=== PATIENT | male | born 1990 | race Caucasian/White ===

== ENCOUNTER 2017-02-21 20:14 | Emergency (ER) | payer BC ==
[2017-02-21 20:41] VITALS: BP 136/91
[2017-02-21] MEDS ORDERED: Alum Hydrox/Mag Hydrox/Simeth 30 ML, Lidocaine 2% 15 ML PO ONE ×2 (21:32)
[2017-02-21] MEDS ORDERED: Ondansetron 4 MG Tab.DIS PO ONE (21:32)
--- NOTE | 2017-02-21 21:43 | EDM.PDOC ---
ED HPI GENERAL MEDICAL PROBLEM - General Chief Complaint: General Stated Complaint: GENERAL PAIN IN BODY Time Seen by Provider: 02/21/17 21:24 Source of Information: Reports: Patient History Limitations: Reports: No Limitations - History of Present Illness INITIAL COMMENTS - FREE TEXT/NARRATIVE: Patient is a 26-year-old male who presents to the ED complaining of generalized body aches, nausea/vomiting, and diarrhea for the past 2-3 days. In addition he' s also had cold-like symptoms with nonproductive cough and headache. He's had no documented fever. He's taken some ibuprofen with no improvement of his current symptoms. Did vomit x1 this morning with no blood present with no blood with this as well. He is mildly nauseated with admission to the ED. Epigastric discomfort is described as a throbbing sensation. He has no history of acid reflux. Denies any aggravation with drinking or eating. Patient has no pertinent past medical history. Generalized Pain Score (Numeric/FACES): 4 - Related Data Allergies Allergy/AdvReac Type Severity Reaction Status Date / Time No Known Allergies Allergy Verified 02/21/17 20:34 Home Meds: Home Meds FLUoxetine [PROzac] 40 mg PO DAILY 02/21/17 [History] Ondansetron [Zofran ODT] 4 mg PO Q6H PRN #10 tab.dis 02/21/17 [Rx] busPIRone [Buspar] 10 mg PO TID 02/21/17 [History] Past Medical History Psychiatric History: Reports: Anxiety - Past Surgical History GI Surgical History: Reports: Appendectomy Social & Family History - Tobacco Use Smoking Status *Q: Never Smoker - Caffeine Use Caffeine Use: Reports: Energy Drinks - Recreational Drug Use Recreational Drug Use: No ED ROS GENERAL - Review of Systems Review Of Systems: See Below Constitutional: Reports: Malaise, Decreased Appetite. Denies: Fever, Chills HEENT: Reports: Rhinitis, Sinus Problem. Denies: Throat Pain, Throat Swelling Respiratory: Reports: Cough. Denies: Shortness of Breath, Sputum Cardiovascular: Denies: Chest Pain, Dyspnea on Exertion, Palpitations GI/Abdominal: Reports: Abdominal Pain, Decreased Appetite, Nausea, Vomiting (x1) . Denies: Bloody Stool, Constipation, Diarrhea, Hematemesis Musculoskeletal: Reports: Muscle Pain (generalized) ED EXAM, GENERAL - Physical Exam Exam: See Below Exam Limited By: No Limitations General Appearance: Alert, WD/WN, No Apparent Distress Ears: Normal External Exam, Normal Canal, Hearing Grossly Normal, Normal TMs Nose: Normal Inspection Throat/Mouth: Normal Inspection, Normal Oropharynx, Normal Voice, No Airway Compromise Head: Atraumatic, Normocephalic, Sinus Tenderness Neck: Normal Inspection, Supple, Non-Tender, Full Range of Motion. No: Lymphadenopathy (L), Lymphadenopathy (R) Respiratory/Chest: No Respiratory Distress, Lungs Clear, Normal Breath Sounds, No Accessory Muscle Use, Chest Non-Tender Cardiovascular: Normal Peripheral Pulses, Regular Rate, Rhythm GI/Abdominal: Normal Bowel Sounds, Soft, No Organomegaly, No Distention, No Abnormal Bruit, No Mass, Tender (mild tenderness to the epigastric region). No : Distended, Guarding, Rigid, Rebound, Hepatomegaly, Splenomegaly Extremities: Normal Inspection Neurological: Alert, Oriented, CN II-XII Intact, Normal Cognition, No Motor/ Sensory Deficits Psychiatric: Normal Affect, Normal Mood Skin Exam: Warm, Dry, Intact, Normal Color Course - Vital Signs Last Recorded V/S: Last Vital Signs Temp 98.5 F 02/21/17 20:39 Pulse 80 02/21/17 20:39 Resp 20 02/21/17 20:39 BP 136/91 H 02/21/17 20:47 Pulse Ox 99 02/21/17 20:39 - Orders/Labs/Meds Meds: Medications Discontinued Medications Generic Name Dose Route Start Last Admin Trade Name Freq PRN Reason Stop Dose Admin Al Hydroxide/Mg Hydroxide 30 0 ml 02/21/17 21:32 02/21/17 21:42 ml/ Lidocaine HCl 15 ml PO 02/21/17 21:33 45 ml ONETIME ONE Administration Ondansetron HCl 4 mg 02/21/17 21:32 02/21/17 21:42 Zofran Odt PO 02/21/17 21:33 4 mg ONETIME ONE Administration - Re-Assessments/Exams Free Text/Narrative Re-Assessment/Exam: Patient has opted to take zofran and GI cocktail to see if this relieves symptoms prior to obtaining blood work and/or imaging. 2227 Reassessment, symptoms have drastically improved with the above therapies. Will discharge patient home with instructions as documented. Departure - Departure Time of Disposition: 22:38 Disposition: Home, Self-Care 01 Condition: good Clinical Impression: Gastroenteritis, Abdominal pain in male - Discharge Information Prescriptions: Ondansetron [Zofran ODT] 4 mg PO Q6H PRN #10 tab.dis PRN Reason: Nausea/Vomiting Referrals: Xuan Cortez, ORAL THERAPIST [Primary Care Provider] - Forms: ED Department Discharge, Return to Work/School Form Additional Instructions: Take the zofran as prescribed for nausea/vomiting. Push the fluids advancing to bland diet in the next 24 hrs as tolerated. Refrain from fruit juices, milk, raw fruits/vegetables, and or any other foods that cause worsening symptoms. Followup with PCP this coming week if symptoms persist. Return to the E.D. if you develop any new or worsening symptoms. May take prilosec 20mg 1/2 hr to breakfast everyday for the next 2 wks for stomach irritation.
== END 2017-02-21 22:50 | disposition home or self-care (01) ==
LOC: JD.ED 20:14 → SUPCPDRO 20:14 → JD.ED 22:50
DX: K52.9 Noninfective gastroenteritis and colitis, unspecified (principal); F41.9 Anxiety disorder, unspecified; Z90.49 Acquired absence of other specified parts of digestive tract; Z79.899 Other long term (current) drug therapy
CPT/HCPCS: 99283; A9270

== ENCOUNTER 2017-04-20 20:48 | Emergency (ER) | payer BC ==
[2017-04-20 21:11] VITALS: BP 138/80
[2017-04-20] MEDS ORDERED: Acetaminophen 325 MG Tab PO ONE (21:43)
[2017-04-20] MEDS ORDERED: Cyclobenzaprine 10 MG Tab PO ONE (21:43)
[2017-04-20] MEDS ORDERED: Ibuprofen 800 MG Tab PO ONE (21:43)
--- NOTE | 2017-04-20 21:47 | EDM.PDOC ---
[id number]: [facility] PAIN GOING TO LEGS/DIZZY Time Seen by Provider: 04/20/17 21:01 Source of Information: Reports: Patient History Limitations: Reports: No Limitations - History of Present Illness INITIAL COMMENTS - FREE TEXT/NARRATIVE: 26 y/o M with hx chronic back pain presents with exacerbation of his pain. States he was playing with a child relative today putting the child on his shoulders and now his back pain is worse. Pain is located in lower back, midline, radiates to R leg, worse with movement, better with rest. Moderate severity. Hasn't taken anything for pain today. No fall or trauma. NO numbness/weakness/incontinence. No fever/recent illness. Has had prior MRI at outside institution, not able to tell me results. Lower Back Pain Score (Numeric/FACES): 7 - Related Data Allergies Allergy/AdvReac Type Severity Reaction Status Date / Time No Known Allergies Allergy Verified 04/20/17 21:07 Home Meds: Home Meds FLUoxetine [PROzac] 40 mg PO DAILY 02/21/17 [History] Ondansetron [Zofran ODT] 4 mg PO Q6H PRN #10 tab.dis 02/21/17 [Rx] busPIRone [Buspar] 10 mg PO TID 02/21/17 [History] Cyclobenzaprine [Flexeril] 10 mg PO BID PRN #20 tablet 04/20/17 [Rx] Ibuprofen 800 mg PO TID PRN #30 tablet 04/20/17 [Rx] Past Medical History - Past Health History Medical/Surgical History: Denies Medical/Surgical History Psychiatric History: Reports: Anxiety - Past Surgical History HEENT Surgical History: Reports: Adenoidectomy, Tonsillectomy GI Surgical History: Reports: Appendectomy Social & Family History - Tobacco Use Smoking Status *Q: Former Smoker Used Tobacco, but Quit: Yes Month Tobacco Last Used: december 2016 - Caffeine Use Caffeine Use: Reports: Energy Drinks - Recreational Drug Use Recreational Drug Use: No ED ROS GENERAL - Review of Systems Review Of Systems: See Below Constitutional: Denies: Fever Respiratory: Denies: Shortness of Breath Cardiovascular: Denies: Chest Pain GI/Abdominal: Denies: Abdominal Pain : Denies: Dysuria, Flank Pain Musculoskeletal: Reports: Back Pain Neurological: Reports: Dizziness. Denies: Weakness ED EXAM,LOWER BACK PAIN/INJURY - Physical Exam Exam: See Below Exam Limited By: No Limitations General Appearance: Alert, WD/WN, No Apparent Distress Eye Exam: Bilateral Eye: Normal Inspection Ears: Normal External Exam Nose: Normal Inspection Throat/Mouth: Normal Inspection, Normal Voice, No Airway Compromise Head: Atraumatic, Normocephalic Neck: Normal Inspection, Supple, Non-Tender, Full Range of Motion Respiratory/Chest: No Respiratory Distress, Lungs Clear, Normal Breath Sounds, Chest Non-Tender Cardiovascular: Normal Peripheral Pulses, Regular Rate, Rhythm, No Murmur GI/Abdominal: Soft, Non-Tender, No Distention. No: Rebound Back Exam: Normal Inspection, Vertebral Tenderness (mid lumbar, no step offs or deformities, skin normal, no fluctuance, mild paraspinal lumbar TTP). No: CVA Tenderness (L), CVA Tenderness (R) Extremities: Normal Inspection Neurological: Alert, Normal Mood/Affect, Normal Dorsiflexion, Normal Plantar Flexion, No Motor/Sensory Deficits, Oriented x 3 Psychiatric: Normal Affect, Normal Mood Skin Exam: Warm, Dry, Intact, Normal Color, No Rash Course - Vital Signs Last Recorded V/S: Last Vital Signs Temp 36.5 C 04/20/17 21:07 Pulse 98 04/20/17 21:07 Resp 18 04/20/17 21:07 BP 138/80 04/20/17 21:07 Pulse Ox 98 04/20/17 21:07 - Orders/Labs/Meds Meds: Medications Discontinued Medications Generic Name Dose Route Start Last Admin Trade Name Bret PRN Reason Stop Dose Admin Acetaminophen 650 mg 04/20/17 21:43 04/20/17 21:49 Tylenol PO 04/20/17 21:44 650 mg NOW ONE Administration Cyclobenzaprine HCl 10 mg 04/20/17 21:43 04/20/17 21:50 Flexeril PO 04/20/17 21:44 10 mg ONETIME ONE Administration Ibuprofen 800 mg 04/20/17 21:43 04/20/17 21:51 Motrin PO 04/20/17 21:44 800 mg ONETIME ONE Administration - Re-Assessments/Exams Free Text/Narrative Re-Assessment/Exam: 04/20/17 23:01 Exacerbation of chronic back pain, discussed pain control/need for follow up/ return precautions. Departure - Departure Time of Disposition: 21:44 Disposition: Home, Self-Care 01 Clinical Impression: Low back pain Qualifiers: Chronicity: acute Back pain laterality: midline Sciatica presence: with sciatica Sciatica laterality: sciatica of right side Qualified Code(s): M54.41 - Lumbago with sciatica, right side - Discharge Information Prescriptions: Cyclobenzaprine [Flexeril] 10 mg PO BID PRN #20 tablet PRN Reason: Muscle Spasm Ibuprofen 800 mg PO TID PRN #30 tablet PRN Reason: Pain Instructions: Back Pain, Adult Referrals: Xuan Cortez PROPERTY CUSTODIAN [Primary Care Provider] - Forms: ED Department Discharge Additional Instructions: 1. Take ibuprofen as prescribed for pain. You may also take acetaminophen ( Tylenol) with ibuprofen - these meds work in different ways and are safe to take together. 2. Take cyclobenzaprine as needed for muscle spasm. No driving or working while taking this medication - it may make you sleepy. 3. Follow up with your primary care provider this week for further care.
== END 2017-04-20 21:55 | disposition home or self-care (01) ==
LOC: JD.ED 20:48
DX: M54.41 Lumbago with sciatica, right side (principal); Z79.899 Other long term (current) drug therapy; Z90.49 Acquired absence of other specified parts of digestive tract; Z98.890 Other specified postprocedural states; Z87.891 Personal history of nicotine dependence
CPT/HCPCS: 99283; A9270